=== PATIENT | female | born 1970 | race Caucasian/White ===

== ENCOUNTER 2021-12-26 14:53 | Emergency (ER) | payer OTHER ==
[~2021-12-26 14:53] MED LIST: BASAGLAR K100 UNIT/1 SC; BRILINTA90 MG PO; COREG 3.125M3.125 MG PO; CRESTOR40 MG PO; ECOTRIN81 MG PO; EFFEXOR XR75 MG PO; ELIQUIS5 MG PO; GLUCOPHAGE1000 MG PO; JANUVIA100 MG PO; KLOR-CON M1010 MEQ PO; LASIX20 MG PO; MAGOX 400400 MG PO; NARATRIPTAN HC2.5 MG PO; NEURONTIN 400400 MG PO; NITROSTAT0.4 MG SL; NOVOLOG FL100 UNIT/1 SC; OMEPRAZOLE20 MG PO; ONDANSETRON ODT4 MG PO; PRINIVIL5 MG PO; RANITIDINE HCL150 MG PO; SYMBICORT 160-1 INHA INH; SYNTHROID75 MCG PO; TIZANIDINE HCL2 MG PO; TRAZODONE HCL100 MG PO; TRICOR145 MG PO; VENTOLIN HFA 66.7 GM INH; VICTOZA 1818 MG/3 ML SC; VITAMIN E400 UNI2 PO; ZONISAMIDE50 MG PO; ZYLOPRIM 100 M100 MG PO
[2021-12-26 16:00] LABS: HEMOGLOBIN 14.1 gm/dl (12.3-15.3); RED BLOOD COUNT 4.78 M/UL (4.00-5.10); WHITE BLOOD COUNT 10.7 K/UL (4.5-11.0)
[2021-12-26 16:28] LABS: BUN/CREATININE RATIO 18 (0-10)
[2021-12-26] MEDS ORDERED: ZOFRAN 4 MG TAB4 MG PO (18:01)
== END 2021-12-26 18:10 | disposition home or self-care (01) ==
LOC: ER1 14:53
PROVIDERS: Physician Assistant
DX: R11.2 Nausea with vomiting, unspecified (principal); I11.9 Hypertensive heart disease without heart failure; Z20.822 Contact with and (suspected) exposure to COVID-19; Z95.1 Presence of aortocoronary bypass graft; F17.200 Nicotine dependence, unspecified, uncomplicated; Z79.899 Other long term (current) drug therapy; Z88.0 Allergy status to penicillin; Z88.2 Allergy status to sulfonamides; Z88.8 Allergy status to other drugs, medicaments and biological substances
CPT/HCPCS: 71045; 80053; 81001; 82550; 82553; 84484; 85025; 85610; 93005; 96374; 99284; J2405; U0002